=== PATIENT | female | born 1990 | race Caucasian/White ===

== ENCOUNTER 2017-09-15 15:42 | Emergency (ER) | payer OTHER ==
--- NOTE | 2017-09-15 16:34 | RAD ---
3 VIEWS LEFT FOOT: Date: 09/15/17 HISTORY: Left foot injury. FINDINGS: Lisfranc joint is normally aligned. There is no evidence of a fracture or dislocation involving the l eft foot. No other findings. IMPRESSION: No acute osseous abnormality. POS: [facility]
== END 2017-09-15 16:27 | disposition home or self-care (01) ==
LOC: SCSER 15:42
DX: S93.602A Unspecified sprain of left foot, initial encounter (principal); F41.9 Anxiety disorder, unspecified; F32.9 Major depressive disorder, single episode, unspecified; W10.9XXA Fall (on) (from) unspecified stairs and steps, initial encounter